=== PATIENT | female | born 1945 | race Caucasian/White ===

== ENCOUNTER 2019-05-20 02:38 | Emergency (ER) | payer MEDICARE, MEDICAID ==
[2019-05-20] MEDS ORDERED: NS 0.9% 1000 ML** 1,000 ML IV ONE (02:43)
[2019-05-20] MEDS ORDERED: Morphine 10 MG/ML VIAL (1 ml) IV ONE (02:49)
[2019-05-20] MEDS ORDERED: Ondansetron INJ* 2 MG/ML VIAL IV ONE (02:49)
[2019-05-20 03:06] LABS: ABS Basophils 0.1 10^3/ul (0-0.2); ABS Eosinophils 0.3 10^3/ul (0-0.6); ABS Lymphocytes 1.7 10^3/ul (1.0-4.8); ABS Monocytes 0.4 10^3/ul (0-0.8); ABS Neutrophils 5.7 10^3/ul (1.5-7.7); Eosinophil % 3.2 %; Hematocrit 41 % (35-47); Hemoglobin 13.6 g/dL (12.0-16.0); Lymphocyte % 20.9 %; Mean Corpuscular HGB Conc 34 g/dL (31-36); Mean Corpuscular Hemoglobin 29 pg (27-31); Mean Corpuscular Volume 88 fL (80-97); Mean Platelet Volume 7.6 fL (7.4-10.4); Platelet Count 319 10^3/uL (150-450); Red Blood Count 4.63 10^6 /uL (3.70-4.87); Red Cell Distribution Width 16 % (10-15); White Blood Count 8.1 10^3/uL (3.5-10.8)
--- NOTE | 2019-05-20 03:13 | ED ---
Abdominal Pain/Female - HPI Summary HPI Summary: This pt is a 74 Y/O F presenting to [facility] with a CC of lower abdominal pain that is rated a 4/10 in severity and is currently described as burning. She states that the pain started on 2200 05/19/2019. She states that she has had dysuria, nausea, diarrhea, and vomiting. She states that her pain is aggravated with palpation and ingesting liquids or food. She denies any diaphoresis, CP, and SOB. She states that her symptoms are alleviated by nothing. She has a PMHx of HTN and a total hysterectomy. - History of Current Complaint Chief Complaint: EDAbdPain Stated Complaint: ABD PAIN PER EMS Time Seen by Provider: 05/20/19 02:48 Hx Obtained From: Patient Onset/Duration: Sudden Onset Timing: Constant Severity Initially: Mild Severity Currently: Mild Pain Intensity: 4 Pain Scale Used: 0-10 Numeric Location: Diffuse Radiates: No Character: Burning Aggravating Factor(s): Food Alleviating Factor(s): Nothing Associated Signs and Symptoms: Positive: Negative - SOB, Urinary Symptoms - dysuria, Nausea, Vomiting, Diarrhea. Negative: Diaphoresis, Chest Pain Allergies/Adverse Reactions: Allergies Allergy/AdvReac Type Severity Reaction Status Date / Time No Known Allergies Allergy Verified 05/20/19 02:58 Home Medications: Home Medications Metoprolol Succinate XL TAB* [Toprol XL TAB*] 200 mg PO DAILY 05/20/19 [History Confirmed 05/20/19] Nortriptyline CAP* [Pamelor CAP*] 25 mg PO SEE INSTRUCTIONS PRN 05/20/19 [ History Confirmed 05/20/19] PMH/Surg Hx/FS Hx/Imm Hx Previously Healthy: Yes Endocrine/Hematology History: Denies: Hx Diabetes Cardiovascular History: Reports: Hx Hypertension Denies: Hx Pacemaker/ICD Respiratory History: Reports: Hx Chronic Obstructive Pulmonary Disease (COPD) History: Denies: Hx Dialysis, Hx Renal Disease Musculoskeletal History: Reports: Hx Arthritis, Hx Fibromyalgia Sensory History: Denies: Hx Hearing Aid Neurological History: Reports: Hx Migraine Psychiatric History: Reports: Hx Schizophrenia Denies: Hx Panic Disorder, Hx of Violent Episodes Against Others - Cancer History Hx Chemotherapy: No Hx Radiation Therapy: No - Surgical History Surgical History: Yes Surgery Procedure, Year, and Place: OVARIAN [place] 1999. OVARIAN [place] 2009 [place]. LIPOSUCTION ABD 1994 [place]. States hysterectomy - Immunization History Immunizations Up to Date: Yes Infectious Disease History: No Infectious Disease History: Denies: Traveled Outside the [place] in Last 30 Days - Family History Known Family History: Positive: Hypertension - Social History Occupation: Retired Lives: Alone Alcohol Use: None Hx Substance Use: No Substance Use Type: Reports: None Hx Tobacco Use: No Smoking Status (MU): Never Smoked Tobacco Review of Systems Negative: Skin Diaphoresis Negative: Chest Pain Negative: Shortness Of Breath Positive: Abdominal Pain, Vomiting, Diarrhea, Nausea Positive: dysuria All Other Systems Reviewed And Are Negative: Yes Physical Exam - Summary Physical Exam Summary: Appearance: Well-appearing, Well-nourished, appears somewhat uncomfortable Skin: Warm, dry, no obvious rash Eyes: sclera anicteric, no conjunctival pallor ENT: mucous membranes moist, pharynx appears normal Neck: Supple, nontender Respiratory: Clear to auscultation, no signs of respiratory distress Cardiovascular: Normal S1, S2. No murmurs. Normal distal pulses in tibial and radial bilaterally. Abdomen: Soft, diffuse tenderness with some guarding that does not localize anywhere, normal active bowel sounds present, somewhat distended Musculoskeletal: Normal, Strength/ROM Intact Neurological: A&Ox3, awake and alert, mentation is normal, speech is fluent and appropriate Psychiatric: affect is normal, does not appear anxious or depressed Triage Information Reviewed: Yes Vital Signs On Initial Exam: Initial Vitals Temp Pulse Resp BP Pulse Ox 97.6 F 62 20 162/78 98 05/20/19 02:45 05/20/19 02:45 05/20/19 02:45 05/20/19 02:45 05/20/19 02:45 Vital Signs Reviewed: Yes Procedures - Sedation Patient Received Moderate/Deep Sedation with Procedure: No Diagnostics - Vital Signs Vital Signs Temp Pulse Resp BP Pulse Ox 05/20/19 02:52 62 98 05/20/19 02:45 97.6 F 62 20 162/78 98 - Laboratory Lab Results: Lab Results 05/20/19 Range/Units 02:55 WBC 8.1 (3.5-10.8) 10^3/uL RBC 4.63 (3.70-4.87) 10^6 /uL Hgb 13.6 (12.0-16.0) g/dL Hct 41 (35-47) % MCV 88 (80-97) fL MCH 29 (27-31) pg MCHC 34 (31-36) g/dL RDW 16 H (10-15) % Plt Count 319 (150-450) 10^3/uL MPV 7.6 (7.4-10.4) fL Neut % (Auto) 70.1 % Lymph % (Auto) 20.9 % [place] % (Auto) 5.0 % Eos % (Auto) 3.2 % Baso % (Auto) 0.8 % Absolute Neuts (auto) 5.7 (1.5-7.7) 10^3/ul Absolute Lymphs (auto) 1.7 (1.0-4.8) 10^3/ul Absolute Monos (auto) 0.4 (0-0.8) 10^3/ul Absolute Eos (auto) 0.3 (0-0.6) 10^3/ul Absolute Basos (auto) 0.1 (0-0.2) 10^3/ul Absolute Nucleated RBC 0.0 10^3/ul Nucleated RBC % 0.0 Result Diagrams: 05/20/19 02:55 05/20/19 02:55 Lab Statement: Any lab studies that have been ordered have been reviewed, and results considered in the medical decision making process. - CT CT A/P CT Interpretation Completed By: Radiologist Summary of CT Findings: Moderate fecal load. Distal sigmoid colon demonstrates wall thickening with. mild pericolonic fat stranding to the level of the rectosigmoid junction. Colitis is considered. Multiple large coarse mesenteric calcifications in the pelvis and right upper. quadrant. ED physician has reviewed this report. Abdominal Pain Fem Course/Dx - Course Course Of Treatment: This pt is a 74 Y/O F presenting to [facility] with a CC of lower abdominal pain that is rated a 4/10 in severity and is currently described as burning. She states that the pain started on 2200 05/19/2019. She states that she has had dysuria, nausea, diarrhea, and vomiting. She states that her pain is aggravated with palpation and ingesting liquids or food. Her PE found that she has diffuse tenderness with some guarding that does not localize anywhere, normal active bowel sounds present, and is somewhat distended. She was given IV fluids, Morphine, and Zofran during her ED course. CT A/P shows the following: Moderate fecal load. Distal sigmoid colon demonstrates wall thickening with. mild pericolonic fat stranding to the level of the rectosigmoid junction. Colitis is considered. Multiple large coarse mesenteric calcifications in the pelvis and right upper. quadrant. She will be discharged home with a Dx of constipation. - Diagnoses Provider Diagnoses: Constipation Discharge ED - Sign-Out/Discharge Documenting (check all that apply): Patient Departure - discharge - Discharge Plan Condition: Good Disposition: HOME Patient Education Materials: Constipation (ED), Acute Abdominal Pain (ED) Referrals: Colton Romero CRUISE COORDINATOR [Primary Care Provider] - 2 Days (if not improved after the laxatives) - Billing Disposition and Condition Condition: GOOD Disposition: Home - Attestation Statements Document Initiated by Karla: Yes Documenting Shefaliibe: Davion Simpson Provider For Whom Karla is Documenting (Include Credential): Mic Alejo MD Scribe Attestation: Davion Painter, felixed for Mic Alejo MD on 05/21/19 at 0524. Scribe Documentation Reviewed: Yes Provider Attestation: The documentation as recorded by the Davion sanchez accurately reflects the service I personally performed and the decisions made by , Mic Alejo MD Status of Scribe Document: Viewed
[2019-05-20 03:23] LABS: Albumin 4.4 g/dL (3.2-5.2); Albumin/Globulin Ratio 1.7 (1-3); BUN/Creatinine Ratio 24.1 (8-20); Calcium 10.2 mg/dL (8.6-10.3); EGFR African American 85.6 (>60); EGFR Non-African American 70.8 (>60); Globulin 2.6 g/dL (2-4); Potassium 3.8 mmol/L (3.5-5.0); Total Bilirubin 0.3 mg/dL (0.2-1.0)
[2019-05-20] MEDS ORDERED: Iohexol 300* (CONTRAST) 10 ML SDV IV ONE (04:42)
[2019-05-20 06:20] LABS: Urine Appearance Cloudy; Urine Bilirubin Negative (Negative); Urine Blood Negative (Negative); Urine Color Yellow; Urine Glucose Negative (Negative); Urine Ketones Negative (Negative); Urine Nitrite Negative (Negative); Urine Protein Negative (Negative); Urine Specific Gravity 1.035 (1.010-1.030); Urine Urobilinogen Negative (Negative)
[2019-05-20] MEDS ORDERED: PEG 3000 GI LAVAGE* 1 GALLON PO ONE (06:34)
[2019-05-20 06:44] LABS: Urine Bacteria Absent (Absent); Urine Red Blood Cell 3+(>10/hpf) (Absent); Urine Squamous Epithelial Cell Present (Absent); Urine White Blood Cell Trace(0-5/hpf) (Absent)
[2019-05-20 07:27] VITALS: BP 132/110
== END 2019-05-20 07:39 | disposition home or self-care (01) ==
LOC: ED 02:38
DX: K59.00 Constipation, unspecified (principal); I10 Essential (primary) hypertension; J44.9 Chronic obstructive pulmonary disease, unspecified; F20.9 Schizophrenia, unspecified; Z90.710 Acquired absence of both cervix and uterus; Z79.899 Other long term (current) drug therapy
CPT/HCPCS: 36415; 74177; 80053; 81003; 81015; 83605; 83690; 85025; 87086; 96361; 96374; 96375; 99283; A9270-GY; J2270; J2405; Q9967

== ENCOUNTER 2019-06-13 02:14 | Emergency (ER) | payer MEDICARE, MEDICAID ==
[2019-06-13] MEDS ORDERED: NS 0.9% 1000 ML** 1,000 ML IV ONE (02:32)
[2019-06-13] MEDS ORDERED: Ondansetron INJ* 2 MG/ML VIAL IV ONE (02:32)
[2019-06-13 02:55] LABS: ABS Eosinophils 0.3 10^3/ul (0-0.6); ABS Lymphocytes 1.4 10^3/ul (1.0-4.8); ABS Monocytes 0.4 10^3/ul (0-0.8); ABS Neutrophils 8.5 10^3/ul (1.5-7.7); Eosinophil % 2.4 %; Hematocrit 39 % (35-47); Lymphocyte % 13.4 %; Mean Corpuscular HGB Conc 33 g/dL (31-36); Mean Corpuscular Hemoglobin 30 pg (27-31); Mean Corpuscular Volume 90 fL (80-97); Platelet Count 242 10^3/uL (150-450); Red Blood Count 4.33 10^6 /uL (3.70-4.87); Red Cell Distribution Width 16 % (10-15); White Blood Count 10.5 10^3/uL (3.5-10.8)
[2019-06-13 02:59] LABS: INR 1.02 (0.82-1.09)
[2019-06-13 03:11] LABS: Albumin 4.5 g/dL (3.2-5.2); Albumin/Globulin Ratio 1.8 (1-3); BUN/Creatinine Ratio 17.6 (8-20); C Reactive Protein 8.19 mg/L (<8.01); EGFR African American 78.7 (>60); Globulin 2.5 g/dL (2-4); Potassium 3.5 mmol/L (3.5-5.0); Total Bilirubin 0.2 mg/dL (0.2-1.0)
--- OUTSIDE RECORDS SUMMARY | 2019-06-13 03:33 | XMS REPORT | Continuity of Care Document ---
:1945 External Reference #:[id number] Author Name Alirio Butler MD Address [address] [place] [address] Problems Active Problems Provider Date Anxiety state Helena Marion M.D. Onset: 06/12/2011 Palpitations Helena Marion M.D. Onset: 06/12/2011 Headache Helena Marion M.D. Onset: 11/06/2012 Irritable bowel syndrome Helena Marion M.D. Onset: 11/06/2012 Allergic rhinitis Helena Marion M.D. Onset: 11/06/2012 Social History Type Date Description Comments Sex Unknown Tobacco Use Start: Unknown End: Former Cigarette Smoker 1PPD most of her Unknown life ETOH Use Denies alcohol use Recreational Drug Use Denies Drug Use Allergies, Adverse Reactions, Alerts Description No Known Drug Allergies Medications Active Medications SIG Qnty Indications Ordering Date Provider Cymbalta take 1 capsule by 30caps Alirio 06/03/[address] mouth daily for MD Carrie Part pain Voltaren 1 apply to 200gm M16.9 Alirio 06/03/2019 1% Gel affected area MD Carrie twice a day as needed Zofran 1 tab by mouth 30tabs G43.009 Alirio 06/03/2019 4mg Tablets three times a day MD Carrie Co Q-10 Maximum 1 tab by mouth 90caps Alirio 03/06/2019 Strength three times a day MD Carrie 400mg Capsules Nortriptyline HCL 1 tab by mouth 30caps Alirio 03/06/2019 25mg daily every night MD Carrie Capsules Metoprolol Succinate Take One Tablet 30tabs R00.2 Colton Love 07/21/2015 ER By Mouth Once Storm, [employer]ER-C 200mg Tablets ER 24HR Daily I10 Walker/Folding/Adjustable/Adult Use as 1units 780.71 Helena M. 2012 [facility] directed to Ankush Marion assist with ambulation Ibuprofen 800mg Unknown Tablets Papaya Unknown Chewtabs Tylenol 325mg Unknown Capsules Clindamycin Phosphate Unknown 1% Lotion Metronidazole Unknown 0.75% Cream Ice Blue 2% Gel Unknown Immunizations CPT Code Status Date Vaccine Lot # [id number] Given 01/02/2013 Influenza Vaccine High Dose PF [id number] Refused 09/18/2017 Influenza Virus Vaccine, Quadrivalent, 3 Yr > Quad , Preserv Free Vital Signs Date Vital Result Comment 06/03/2019 10:42am BP Systolic 130 mmHg BP Diastolic 72 mmHg Heart Rate 56 /min Body Temperature 97.9 F Respiratory Rate 16 /min 03/06/2019 11:15am Weight 165.00 lb Weight 74.844 kg BP Systolic 122 mmHg BP Diastolic 80 mmHg Heart Rate 74 /min Body Temperature 97.6 F Respiratory Rate 18 /min O2 % BldC Oximetry 93 % Results Test Acquired Date Facility Test Result H/L Range Note CBC Auto 05/20/2019 [facility] White Blood 8.1 10^3/ uL Normal 3.5-10.8 Diff [phone] Count Red Blood Count 4.63 10^6/uL Normal 3.70-4.87 Hemoglobin 13.6 g/dL Normal 12.0-16.0 Hematocrit 41 % Normal 35-47 Mean Corpuscular Volume 88 fL Normal 80-97 Mean Corpuscular Hemoglobin 29 pg Normal 27-31 Mean Corpuscular HGB Conc 34 g/dL Normal 31-36 Red Cell Distribution Width 16 % High 10-15 Platelet Count 319 10^3/uL Normal 150-450 Mean Platelet Volume 7.6 fL Normal 7.4-10.4 Abs Neutrophils 5.7 10^3/uL Normal 1.5-7.7 Abs Lymphocytes 1.7 10^3/uL Normal 1.0-4.8 Abs Monocytes 0.4 10^3/uL Normal 0-0.8 Abs Eosinophils 0.3 10^3/uL Normal 0-0.6 Abs Basophils 0.1 10^3/uL Normal 0-0.2 Abs Nucleated RBC 0.0 10^3/uL Granulocyte % 70.1 % Lymphocyte % 20.9 % Monocyte % 5.0 % Eosinophil % 3.2 % Basophil % 0.8 % Nucleated Red Blood Cells % 0.0 Laboratory test 05/20/2019 [facility] Lactic Acid 1.9 mmol/L Normal 0.5-2.0 1 finding [phone] Comp Metabolic 05/20/2019 [facility] Sodium 139 mmol/ L Normal 135-145 Panel [phone] Potassium 3.8 mmol/L Normal 3.5-5.0 Chloride 106 mmol/L Normal 101-111 Co2 Carbon Dioxide 24 mmol/L Normal 22-32 Anion Gap 9 mmol/L Normal 2-11 Glucose 114 mg/dL High 70-100 Blood Urea Nitrogen 19 mg/dL Normal 6-24 Creatinine 0.79 mg/dL Normal 0.51-0.95 BUN/Creatinine Ratio 24.1 High 8-20 Calcium 10.2 mg/dL Normal 8.6-10.3 Total Protein 7.0 g/dL Normal 6.4-8.9 Albumin 4.4 g/dL Normal 3.2-5.2 Globulin 2.6 g/dL Normal 2-4 Albumin/Globulin Ratio 1.7 Normal 1-3 Total Bilirubin 0.30 mg/dL Normal 0.2-1.0 Alkaline Phosphatase 93 U/L Normal 34-104 Alt 18 U/L Normal 7-52 Ast 20 U/L Normal 13-39 Egfr Non- 70.8 >60 Egfr 85.6 >60 2 Laboratory test 05/20/2019 [facility] Lipase 37 U/L Normal 11.0-82.0 finding [phone] Urinalysis 05/20/2019 [facility] Urine Color Yellow Profile [phone] Urine Appearance Cloudy Urine Specific [place] 1.035 High 1.010-1.030 Urine pH 5.0 Normal 5-9 Urine Urobilinogen Negative Negative Urine Ketones Negative Negative Urine Protein Negative Negative Urine Leukocytes Trace Abnormal Negative Urine Blood Negative Negative Urine Nitrite Negative Negative Urine Bilirubin Negative Negative Urine Glucose Negative Negative Urine White Blood Cell Trace(0-5/hpf) Absent Urine Red Blood Cell 3+(>10/hpf) Abnormal Absent Urine Bacteria Absent Absent Urine Squamous Epithelial Cell Present Abnormal Absent Urine Culture And 05/20/2019 [facility] Urine SEE RESULT 3 Sensitivities [phone] Culture BELOW Comp Metabolic 03/06/2019 [facility] Sodium 144 mmol/ L Normal 135-1 Panel [phone] Potassium 4.3 mmol/L Normal 3.5-5.0 Chloride 111 mmol/L Normal 101-111 Co2 Carbon Dioxide 24 mmol/L Normal 22-32 Anion Gap 9 mmol/L Normal 2-11 Glucose 111 mg/dL High 70-100 Blood Urea Nitrogen 18 mg/dL Normal 6-24 Creatinine 0.75 mg/dL Normal 0.51-0.95 BUN/Creatinine Ratio 24.0 High 8-20 Calcium 10.5 mg/dL High 8.6-10.3 Total Protein 7.0 g/dL Normal 6.4-8.9 Albumin 4.4 g/dL Normal 3.2-5.2 Globulin 2.6 g/dL Normal 2-4 Albumin/Globulin Ratio 1.7 Normal 1-3 Total Bilirubin 0.30 mg/dL Normal 0.2-1.0 Alkaline Phosphatase 84 U/L Normal 34-104 Alt 9 U/L Normal 7-52 Ast 13 U/L Normal 13-39 Egfr Non- 75.3 >60 Egfr 91.2 >60 4 CBC Auto 03/06/2019 [facility] White Blood 7.7 10^3/ uL Normal 3.5-10.8 Diff [phone] Count Red Blood Count 4.63 10^6/uL Normal 3.70-4.87 Hemoglobin 12.7 g/dL Normal 12.0-16.0 Hematocrit 40 % Normal 35-47 Mean Corpuscular Volume 86 fL Normal 80-97 Mean Corpuscular Hemoglobin 28 pg Normal 27-31 Mean Corpuscular HGB Conc 32 g/dL Normal 31-36 Red Cell Distribution Width 17 % High 10-15 Platelet Count 254 10^3/uL Normal 150-450 Mean Platelet Volume 8.4 fL Normal 7.4-10.4 Abs Neutrophils 5.5 10^3/uL Normal 1.5-7.7 Abs Lymphocytes 1.6 10^3/uL Normal 1.0-4.8 Abs Monocytes 0.3 10^3/uL Normal 0-0.8 Abs Eosinophils 0.2 10^3/uL Normal 0-0.6 Abs Basophils 0.0 10^3/uL Normal 0-0.2 Abs Nucleated RBC 0.0 10^3/uL Granulocyte % 72.0 % Lymphocyte % 20.9 % Monocyte % 4.5 % Eosinophil % 2.3 % Basophil % 0.3 % Nucleated Red Blood Cells % 0.1 Laboratory test 03/06/2019 [facility] Vitamin B12 269 pg/mL Normal 180-914 5 finding [phone] Folic Acid (Folate) 3.85 ng/mL >3.99 6 Connective Tissue 03/06/2019 [facility] Anti-Nuclear 0.9 U 7 Panel [phone] Antibody Cyclic Citrullinated Peptide <15.6 U 8 Interpretation See Comment 9 1 [facility] Severe Sepsis and Septic Shock Management Bundle Measure requires all lactic acids initially measuring >2.0 mmol/L be repeated. 2 Because ethnic data is not always readily available, this report includes an eGFR for both -Americans and non- Americans. The National Kidney Disease Education Program (NKDEP) does not endorse the use of the MDRD equation for patients that are not between the ages of 18 and 70, are , have extremes of body size, muscle mass, or nutritional status, or are non- or non-. According to the National Kidney Foundation, irrespective of diagnosis, the stage of the disease is based on the level of kidney function: Stage Description GFR(mL/min/1.73 m(2)) 1 Kidney damage with normal or decreased GFR 90 2 Kidney damage with mild decrease in GFR 60-89 3 Moderate decrease in GFR 30-59 4 Severe decrease in GFR 15-29 5 Kidney failure <15 (or dialysis) 3 SEE RESULT BELOW Name: SHANTE SEGOVIA : [address]: Mic Alejo MD Acct: [id number] Unit: [id number] AGE: 74 Location: Re05/20/19 SEX: F Status: DEP ER SPEC: [id number] LUIS: 05/20/[address] [facility] [address]: Mic Alejo MD REQ: [id number] RECD: 05/20/19 STATUS: COMP ROBERT DR: Colton Romero NP _ SOURCE: URINE SPDESC: ORDERED: Urine Culture Procedure Result Reported Site Urine Culture Final 05/21/19- 1206 ML No growth of clinically significant organisms * ML - Main Lab . END OF REPORT DEPARTMENT OF PATHOLOGY, [address] [place] [address] Reagan Mansfield M.D. Director [facility] # [id number] 4 Because ethnic data is not always readily available, this report includes an eGFR for both -Americans and non- Americans. The National Kidney Disease Education Program (NKDEP) does not endorse the use of the MDRD equation for patients that are not between the ages of 18 and 70, are , have extremes of body size, muscle mass, or nutritional status, or are non- or non-. According to the National Kidney Foundation, irrespective of diagnosis, the stage of the disease is based on the level of kidney function: Stage Description GFR(mL/min/1.73 m(2)) 1 Kidney damage with normal or decreased GFR 90 2 Kidney damage with mild decrease in GFR 60-89 3 Moderate decrease in GFR 30-59 4 Severe decrease in GFR 15-29 5 Kidney failure <15 (or dialysis) 5 Normal Range 180 to 914 Indeterminate Range 145 to 180 Deficient Range <145 6 [id number] REFERENCE VALUE <=1.0 (Negative) 8 REFERENCE VALUE <20.0 (Negative) 9 Tests for antibodies to dsDNA and JO ANN antigens are not performed automatically unless the WADE result is > or = 3.0 U. Studies performed at [facility] indicate that positive WADE results <3.0 U are rarely accompanied by positive second order tests. Test Performed by: [facility] - [address] [address] Machine Programmer: Jonah Eddy M.D. 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 She given at least several weeks, it seems like a good try.We will try Cymbalta next.She asks if there is any way that we could gether on oxycodone again. I told her this is not my usual form of treatment for fibromyalgia and I donot think it would benefit her in the long-term. At this point I have no intention of putting her on narcotics again.M16.9 Osteoarthritis of hip, unspecifiedNew Medication:Voltaren 1 % - 1 apply to affected area twice a day as neededComments:Trial of Voltaren for her right hip [id number] Migraine without aura, not intractable, without status migrainosusNew Medication:Zofran 4 mg - 1 tab by mouth three times a dayComments:She has trouble dealing with the symptoms of her migraines. They often cause nausea, trial of Zofran. Functional Status Description No Information Available Mental Status Description No Information Available Referrals Refer to Reason for Referral Status Appt Date Onelia De Santiago Referral to Dr. De Santiago for further evaluation as Closed several previous treatments have been ineffective. - - Pt states if you cannot reach her, please call daughter,Jj Yarbrough, - - Please contact Pt to schedule appt. - - Please fax appointment date/time to [facility], . [facility] Dermatology [facility] [place] [address] [place] [address] [phone]
[2019-06-13] MEDS ORDERED: Ibuprofen TAB* 400 MG PO ONE (04:25)
--- NOTE | 2019-06-13 05:19 | ED ---
GI/ HPI - HPI Summary HPI Summary: Patient is a 74 y/o F presenting to [facility] with complaints of abdominal pain and nausea. She states that the abdominal pain first onset 2300 06/12/19. The pain is characterized as a cramping sensation. She states that the pain is constant but waxes and wanes in intensity. Patient states that she had a similar episode of pain a few weeks ago. She was evaluated at [facility], CT abd/pel was done and it was noted that she was constipated. Last bowel movement was two days ago. She states that she took three capsules of "Smooth Move" laxative [employer]. Patient denies fevers. She also reports chronic FORTE and claims Hx of migraines. She states that that she had a brain MRI and states that they "found spots on it, on my brain". She also claims chronic, diffuse body aches and that her PCP is evaluating this Sx. NKDA reported. Patient is on nortriptyline. PMHx of HTN. PSHx of ovarin cyst removal. FMHx of cardiac disease. Home medications and allergies are reviewed. - History of Current Complaint Chief Complaint: EDAbdPain Time Seen by Provider: 06/13/19 02:19 Stated Complaint: ABD PAIN PER EMS Hx Obtained From: Patient Onset/Duration: Still Present Timing: Constant, Lasting Hours Severity: Moderate Current Severity: Moderate Pain Intensity: 4 Pain Characteristics: Cramping Associated Signs and Symptoms: Positive: Nausea. Negative: Fever - Allergy/Home Medications Allergies/Adverse Reactions: Allergies Allergy/AdvReac Type Severity Reaction Status Date / Time No Known Allergies Allergy Verified 06/13/19 02:32 Home Medications: Home Medications Metoprolol Succinate XL TAB* [Toprol XL TAB*] 200 mg PO DAILY 05/20/19 [History Confirmed 05/20/19] Nortriptyline CAP* [Pamelor CAP*] 25 mg PO SEE INSTRUCTIONS PRN 05/20/19 [ History Confirmed 05/20/19] PMH/Surg Hx/FS Hx/Imm Hx Endocrine/Hematology History: Denies: Hx Diabetes Cardiovascular History: Reports: Hx Hypertension Denies: Hx Pacemaker/ICD Respiratory History: Reports: Hx Chronic Obstructive Pulmonary Disease (COPD) History: Denies: Hx Dialysis, Hx Renal Disease Musculoskeletal History: Reports: Hx Arthritis, Hx Fibromyalgia Sensory History: Denies: Hx Hearing Aid Neurological History: Reports: Hx Migraine Psychiatric History: Reports: Hx Schizophrenia Denies: Hx Panic Disorder, Hx of Violent Episodes Against Others - Cancer History Hx Chemotherapy: No Hx Radiation Therapy: No - Surgical History Surgery Procedure, Year, and Place: OVARIAN [place] 1999. OVARIAN CYST 2010 [place]. LIPOSUCTION ABD 1995 [place]. States hysterectomy Infectious Disease History: No Infectious Disease History: Denies: Traveled Outside the [place] in Last 30 Days - Family History Known Family History: Positive: Hypertension - Social History Alcohol Use: None Hx Substance Use: No Substance Use Type: Reports: None Hx Tobacco Use: No Smoking Status (MU): Never Smoked Tobacco - Additional Comments History Additional Comments: PMHx of HTN, ovarian cysts, migraines PSHx of ovarian cysts FMHx of cardiac disease Review of Systems - ROS Summary Review of Systems Summary: Home Medications Medication Instructions Recorded Confirmed Type Metoprolol Succinate XL TAB* 200 mg PO DAILY 05/20/19 05/20/19 History [Toprol XL TAB*] Nortriptyline CAP* [Pamelor CAP*] 25 mg PO SEE INSTRUCTIONS PRN 05/20/19 History Negative: Fever Positive: Abdominal Pain, Nausea Positive: Myalgia - chronic diffuse body aches Positive: Headache - chronic All Other Systems Reviewed And Are Negative: Yes Physical Exam - Summary Physical Exam Summary: General: Well-developed, Obese and Elderly female. Moaning upon entry to room. HEENT: Normocephalic, Atraumatic. Eyes: Conjuctiva normal, PERRL. Oropharynx: Clear, mucous membranes moist, (-) exudates. Neck: Soft, FROM, (-) lymphadenopathy, (-) thyromegaly, (-) JVD. Cardiovascular: Normal sinus rhythm, (-) murmur. Lungs: Clear to auscultation bilaterally (-) wheezes, (-) rales, (-) rhonchi. Abdomen: Soft, Moderate tenderness throughout abdomen out of proportion to exam , non-distended, (-) organomegaly, normal bowel sounds. Back: (-) CVA tenderness Extremities: No edema. Skin: Warm, dry, (-) rash. Neuro: Alert and oriented x3, moves all extremities equally. No ataxia. No gait disturbance. No sensory deficit. Normal strength, normal sensation. Psychiatric: Mildly anxious appearing. Triage Information Reviewed: Yes Vital Signs On Initial Exam: Initial Vitals Pulse BP Pulse Ox 65 178/83 98 06/13/19 02:21 06/13/19 02:21 06/13/19 02:21 Vital Signs Reviewed: Yes Procedures - Sedation Patient Received Moderate/Deep Sedation with Procedure: No Diagnostics - Vital Signs Vital Signs Temp Pulse Resp BP Pulse Ox 06/13/19 03:21 75 172/97 91 06/13/19 03:00 68 94 06/13/19 02:51 65 155/90 95 06/13/19 02:25 97.2 F 64 20 178/83 96 06/13/19 02:21 65 178/83 98 - Laboratory Lab Results: Lab Results 06/13/19 06/13/19 06/13/19 Range/Units 02:45 02:45 02:45 WBC 10.5 (3.5-10.8) 10^3/uL RBC 4.33 (3.70-4.87) 10^6 /uL Hgb 13.0 (12.0-16.0) g/dL Hct 39 (35-47) % MCV 90 (80-97) fL MCH 30 (27-31) pg MCHC 33 (31-36) g/dL RDW 16 H (10-15) % Plt Count 242 (150-450) 10^3/uL MPV 8.0 (7.4-10.4) fL Neut % (Auto) 80.5 % Lymph % (Auto) 13.4 % Frontier % (Auto) 3.3 % Eos % (Auto) 2.4 % Baso % (Auto) 0.4 % Absolute Neuts (auto) 8.5 H (1.5-7.7) 10^3/ul Absolute Lymphs (auto) 1.4 (1.0-4.8) 10^3/ul Absolute Monos (auto) 0.4 (0-0.8) 10^3/ul Absolute Eos (auto) 0.3 (0-0.6) 10^3/ul Absolute Basos (auto) 0.0 (0-0.2) 10^3/ul Absolute Nucleated RBC 0.0 10^3/ul Nucleated RBC % 0.0 INR (Anticoag Therapy) 1.02 (0.82-1.09) Sodium 138 (135-145) mmol/L Potassium 3.5 (3.5-5.0) mmol/L Chloride 105 (101-111) mmol/L Carbon Dioxide 24 (22-32) mmol/L Anion Gap 9 (2-11) mmol/L BUN 15 (6-24) mg/dL Creatinine 0.85 (0.51-0.95) mg/dL Est GFR ( Amer) 78.7 (>60) Est GFR (Non-Af Amer) 65.0 (>60) BUN/Creatinine Ratio 17.6 (8-20) Glucose 121 H (70-100) mg/dL Lactic Acid (0.5-2.0) mmol/L Calcium 10.0 (8.6-10.3) mg/dL Total Bilirubin 0.20 (0.2-1.0) mg/dL AST 19 (13-39) U/L ALT 21 (7-52) U/L Alkaline Phosphatase 88 (34-104) U/L C-Reactive Protein 8.19 H (<8.01) mg/L Total Protein 7.0 (6.4-8.9) g/dL Albumin 4.5 (3.2-5.2) g/dL Globulin 2.5 (2-4) g/dL Albumin/Globulin Ratio 1.8 (1-3) Lipase 107 H (11.0-82.0) U/L 06/13/19 Range/Units 02:45 WBC (3.5-10.8) 10^3/uL RBC (3.70-4.87) 10^6 /uL Hgb (12.0-16.0) g/dL Hct (35-47) % MCV (80-97) fL MCH (27-31) pg MCHC (31-36) g/dL RDW (10-15) % Plt Count (150-450) 10^3/uL MPV (7.4-10.4) fL Neut % (Auto) % Lymph % (Auto) % Frontier % (Auto) % Eos % (Auto) % Baso % (Auto) % Absolute Neuts (auto) (1.5-7.7) 10^3/ul Absolute Lymphs (auto) (1.0-4.8) 10^3/ul Absolute Monos (auto) (0-0.8) 10^3/ul Absolute Eos (auto) (0-0.6) 10^3/ul Absolute Basos (auto) (0-0.2) 10^3/ul Absolute Nucleated RBC 10^3/ul Nucleated RBC % INR (Anticoag Therapy) (0.82-1.09) Sodium (135-145) mmol/L Potassium (3.5-5.0) mmol/L Chloride (101-111) mmol/L Carbon Dioxide (22-32) mmol/L Anion Gap (2-11) mmol/L BUN (6-24) mg/dL Creatinine (0.51-0.95) mg/dL Est GFR ( Amer) (>60) Est GFR (Non-Af Amer) (>60) BUN/Creatinine Ratio (8-20) Glucose (70-100) mg/dL Lactic Acid 1.9 (0.5-2.0) mmol/L Calcium (8.6-10.3) mg/dL Total Bilirubin (0.2-1.0) mg/dL AST (13-39) U/L ALT (7-52) U/L Alkaline Phosphatase (34-104) U/L C-Reactive Protein (<8.01) mg/L Total Protein (6.4-8.9) g/dL Albumin (3.2-5.2) g/dL Globulin (2-4) g/dL Albumin/Globulin Ratio (1-3) Lipase (11.0-82.0) U/L Result Diagrams: 06/13/19 02:45 06/13/19 02:45 Lab Statement: Any lab studies that have been ordered have been reviewed, and results considered in the medical decision making process. - Radiology ABDOMEN X-RAY Radiology Interpretation Completed By: ED Physician Summary of Radiographic Findings: NO ACUTE PROCESS, PENDING OFFICIAL REPORT. GIGU Course/Dx - Course Course Of Treatment: 74-year-old female presents from home by ambulance with severe abdominal cramping. Patient states she has been having belly pain for quite a while now. States she was actually here for this couple weeks ago. She states she has been constipated. Has been taking some crystals. Also took over the Counter smooth move. Took 3 of those this morning. States she has been having worsening abdominal cramping throughout the day. Comes and goes. All over her abdomen mostly on the left. according to her chart last time she was here she had a diarrhea picture consistent with possible colitis. patient states she had a very small bowel movement today. Had a bowel movement a couple days ago which she thinks may have been normal. Patient is a very poor historian. She requests pain medication immediately upon arrival. Patient is given ibuprofen for pain. Laboratories demonstrated no significant abnormality. Abdominal x-ray within normal limits. Prior to discharge patient had a very large watery bowel movement. Significant improvement in her symptoms. Discharged home. Follow-up with PCP. Follow sooner for any worsening symptoms. During ED course, patient received fluids, Zofran 4 mg IV, and ibuprofen 400 mg PO. - Diagnoses Provider Diagnoses: Abdominal pain Discharge ED - Sign-Out/Discharge Documenting (check all that apply): Patient Departure - discharge - Discharge Plan Condition: Stable Disposition: HOME Patient Education Materials: Abdominal Pain (ED) Referrals: Colton Romero, [employer] [Primary Care Provider] - 3 Days Additional Instructions: PLEASE RETURN TO ED FOR ANY NEW OR WORSENING SYMPTOMS. PLEASE FOLLOWUP WITH YOUR PRIMARY CARE PHYSICIAN WITHIN THREE DAYS. - Billing Disposition and Condition Condition: STABLE Disposition: Home - Attestation Statements Document Initiated by Karla: Yes Documenting Scribe: MARY SHIN Provider For Whom Karla is Documenting (Include Credential): IDALIA LIN MD Scribe Attestation: IMARY, scribed for IDALIA LIN MD on 06/13/19 at [id number]. Scribe Documentation Reviewed: Yes Provider Attestation: The documentation as recorded by the MARY sanchez accurately reflects the service I personally performed and the decisions made by me, IDALIA LIN MD Status of Scribe Document: Viewed
[2019-06-13 07:03] VITALS: BP 175/99
== END 2019-06-13 06:55 | disposition home or self-care (01) ==
LOC: ED 02:14
DX: R10.84 Generalized abdominal pain (principal); R11.0 Nausea; I10 Essential (primary) hypertension; Z79.899 Other long term (current) drug therapy; Z90.710 Acquired absence of both cervix and uterus
CPT/HCPCS: 36415; 74018; 80053; 83605; 83690; 85025; 85610; 86140; 96361; 96374; 99284; A9270-GY; J2405

== ENCOUNTER 2020-10-14 11:44 | Inpatient (IN) ==
[2020-10-14] MEDS ORDERED: fentaNYL 100 mcg/2 ml 50 MCG/ML VIAL ONE (12:54)
[2020-10-14] MEDS ORDERED: Midazolam 10 mg/10 ml VIAL 1 mg/ml 10 ml VIAL (10 mg) ONE (12:54)
[2020-10-14] MEDS: NS 0.9% 1000 ml BAG 1,000 ML IV SCH (17:42)
[2020-10-14] MEDS: Morphine 2 MG/ML SYRINGE IV PRN ×2 (17:42→23:01)
[2020-10-14] MEDS: Heparin 5000 UNITS/ML 1 mL VIAL SUBCUT SCH (22:48)
[2020-10-15] MEDS: Morphine 2 MG/ML SYRINGE IV PRN ×3 (04:38→15:40)
[2020-10-15 04:58] LABS: Hematocrit 32 % (35-47); Hemoglobin 10.4 g/dL (12.0-16.0); Mean Corpuscular HGB Conc 33 g/dL (31-36); Mean Corpuscular Hemoglobin 28 pg (27-31); Mean Corpuscular Volume 85 fL (80-97); Red Blood Count 3.74 10^6 /uL (3.70-4.87); Red Cell Distribution Width 15 % (10-15); White Blood Count 10.1 10^3/uL (3.5-10.8)
[2020-10-15 05:11] LABS: Calcium 8.5 mg/dL (8.6-10.3); EGFR African American 106.9 (>60); EGFR Non-African American 88.4 (>60); Potassium 2.8 mmol/L (3.5-5.0)
[2020-10-15] MEDS: Heparin 5000 UNITS/ML 1 mL VIAL SUBCUT SCH ×3 (06:19→22:20)
[2020-10-15 06:21] LABS: ABS Basophils 0.1 10^3/ul (0-0.2); ABS Eosinophils 0.2 10^3/ul (0-0.6); ABS Lymphocytes 1.8 10^3/ul (1.0-4.8); ABS Monocytes 0.5 10^3/ul (0-0.8); ABS Neutrophils 7.5 10^3/ul (1.5-7.7); Eosinophil % 1.6 %; Lymphocyte % 18.3 %; Nucleated Red Blood Cells % 0.1; Platelet Count Platelets clumped. 10^3/uL (150-450)
[2020-10-15] MEDS: CMCS: Meloxicam 7.5 mg TAB (NF) PO SCH (08:55)
[2020-10-15] MEDS: Scopolamine PATCH Remove NOTE PATCH OFF SCH (08:56)
[2020-10-15] MEDS: NS 0.9% 1000 ml BAG 1,000 ML IV SCH (08:57)
[2020-10-15] MEDS ORDERED: Potassium Chloride LIQUID 20 MEQ/15 ML LIQUID PO ONE (09:16)
[2020-10-15 09:40] LABS: Magnesium 1.8 mg/dL (1.9-2.7)
[2020-10-15] MEDS: KCL 20 MEQ/100 ML IVPREMIX 20 MEQ/100 ML BAG IV SCH ×2 (11:04→14:10)
[2020-10-15] MEDS ORDERED: Magnesium Sulfate 2 gm BAG 2 GM/50 ML BAG IVPB ONE (15:46)
[2020-10-16] MEDS: NS 0.9% 1000 ml BAG 1,000 ML IV SCH (02:57)
[2020-10-16 05:30] LABS: ABS Eosinophils 0.2 10^3/ul (0-0.6); ABS Lymphocytes 1.5 10^3/ul (1.0-4.8); ABS Monocytes 0.4 10^3/ul (0-0.8); ABS Neutrophils 3.7 10^3/ul (1.5-7.7); Eosinophil % 3.6 %; Hematocrit 28 % (35-47); Hemoglobin 9.1 g/dL (12.0-16.0); Lymphocyte % 25.2 %; Mean Corpuscular HGB Conc 33 g/dL (31-36); Mean Corpuscular Hemoglobin 28 pg (27-31); Mean Corpuscular Volume 85 fL (80-97); Platelet Count 259 10^3/uL (150-450); Red Cell Distribution Width 15 % (10-15); White Blood Count 5.8 10^3/uL (3.5-10.8)
[2020-10-16] MEDS: Heparin 5000 UNITS/ML 1 mL VIAL SUBCUT SCH ×3 (05:32→22:53)
[2020-10-16 05:47] LABS: Anion Gap 5 mmol/L (2-11); Blood Urea Nitrogen 11 mg/dL (6-24); CO2 Carbon Dioxide 23 mmol/L (22-32); Calcium 8.2 mg/dL (8.6-10.3); Chloride 110 mmol/L (101-111); Glucose 85 mg/dL (70-100); Potassium 3.6 mmol/L (3.5-5.0); Sodium 138 mmol/L (135-145)
[2020-10-16] MEDS ORDERED: Potassium Chloride LIQUID 20 MEQ/15 ML LIQUID PO ONE (09:35)
[2020-10-16 10:50] LABS: Total Iron Binding Capacity 253 mcg/dL (250-450); Transferrin 181 mg/dL (203-362)
[2020-10-16 11:01] LABS: % Iron Saturation 8 % (15-55); Iron < 20 ug/dL (50-212); Unsaturated Iron Binding < 238 ug/dL
[2020-10-16 11:15] LABS: Ferritin 76.1 ng/mL (11-307)
[2020-10-16 11:18] LABS: Vitamin B12 413 pg/mL (180-914)
[2020-10-16] MEDS: CMCS: Meloxicam 7.5 mg TAB (NF) PO SCH (11:19)
[2020-10-16] MEDS: Morphine 2 MG/ML SYRINGE IV PRN ×2 (11:21→19:40)
[2020-10-16] MEDS: Ondansetron 4 mg VIAL 2 MG/ML 2 ml VIAL IV PRN (19:40)
[2020-10-17 04:43] LABS: ABS Eosinophils 0.2 10^3/ul (0-0.6); ABS Lymphocytes 1.1 10^3/ul (1.0-4.8); ABS Monocytes 0.3 10^3/ul (0-0.8); Eosinophil % 4.6 %; Hematocrit 28 % (35-47); Hemoglobin 9.1 g/dL (12.0-16.0); Mean Corpuscular HGB Conc 33 g/dL (31-36); Mean Corpuscular Hemoglobin 28 pg (27-31); Mean Corpuscular Volume 84 fL (80-97); Mean Platelet Volume 7.8 fL (7.4-10.4); Platelet Count 260 10^3/uL (150-450); Red Blood Count 3.28 10^6 /uL (3.70-4.87); Red Cell Distribution Width 15 % (10-15); White Blood Count 4.6 10^3/uL (3.5-10.8)
[2020-10-17 05:00] LABS: Calcium 8.3 mg/dL (8.6-10.3); EGFR African American 117.3 (>60); EGFR Non-African American 96.9 (>60); Potassium 3.6 mmol/L (3.5-5.0)
[2020-10-17] MEDS: Morphine 2 MG/ML SYRINGE IV PRN ×2 (05:50→14:16)
[2020-10-17] MEDS: Ondansetron 4 mg VIAL 2 MG/ML 2 ml VIAL IV PRN ×2 (10:45→19:48)
[2020-10-17] MEDS: Heparin 5000 UNITS/ML 1 mL VIAL SUBCUT SCH ×2 (10:45→21:06)
[2020-10-17] MEDS ORDERED: Potassium Chloride LIQUID 20 MEQ/15 ML LIQUID PO ONE (16:46)
[2020-10-18] MEDS: Ondansetron 4 mg VIAL 2 MG/ML 2 ml VIAL IV PRN (09:30)
[2020-10-18] MEDS: Heparin 5000 UNITS/ML 1 mL VIAL SUBCUT SCH ×2 (09:37→22:44)
[2020-10-18] MEDS: Scopolamine PATCH Remove NOTE PATCH OFF SCH (10:20)
[2020-10-18] MEDS: Morphine 2 MG/ML SYRINGE IV PRN (11:16)
[2020-10-18] MEDS ORDERED: [UNRECOGNIZED DRUG - OTHER] TOPICAL PRN (11:25)
[2020-10-18] MEDS ORDERED: hydrALAZINE 20 mg/ml 1 ML Vial IV IV SLOW PU PRN (13:02)
[2020-10-18 13:19] LABS: ABS Eosinophils 0.1 10^3/ul (0-0.6); ABS Lymphocytes 1.3 10^3/ul (1.0-4.8); ABS Monocytes 0.3 10^3/ul (0-0.8); ABS Neutrophils 3.4 10^3/ul (1.5-7.7); Hematocrit 32 % (35-47); Hemoglobin 10.3 g/dL (12.0-16.0); Lymphocyte % 25.3 %; Mean Corpuscular HGB Conc 32 g/dL (31-36); Mean Corpuscular Hemoglobin 27 pg (27-31); Mean Corpuscular Volume 84 fL (80-97); Mean Platelet Volume 7.2 fL (7.4-10.4); Platelet Count 352 10^3/uL (150-450); Red Blood Count 3.77 10^6 /uL (3.70-4.87); Red Cell Distribution Width 15 % (10-15); White Blood Count 5.1 10^3/uL (3.5-10.8)
[2020-10-18 13:35] LABS: Calcium 9.2 mg/dL (8.6-10.3); EGFR African American 106.9 (>60); EGFR Non-African American 88.4 (>60); Magnesium 1.7 mg/dL (1.9-2.7); Potassium 3.8 mmol/L (3.5-5.0)
[2020-10-18] MEDS ORDERED: Magnesium Sulfate 2 gm BAG 2 GM/50 ML BAG IVPB ONE (15:19)
[2020-10-19 06:34] LABS: ABS Eosinophils 0.2 10^3/ul (0-0.6); ABS Lymphocytes 1.1 10^3/ul (1.0-4.8); ABS Monocytes 0.3 10^3/ul (0-0.8); Eosinophil % 4.7 %; Hematocrit 31 % (35-47); Lymphocyte % 31.1 %; Mean Corpuscular HGB Conc 32 g/dL (31-36); Mean Corpuscular Hemoglobin 27 pg (27-31); Mean Corpuscular Volume 85 fL (80-97); Mean Platelet Volume 7.6 fL (7.4-10.4); Nucleated Red Blood Cells % 0.1; Platelet Count 312 10^3/uL (150-450); Red Blood Count 3.67 10^6 /uL (3.70-4.87); Red Cell Distribution Width 15 % (10-15); White Blood Count 3.7 10^3/uL (3.5-10.8)
[2020-10-19 07:04] LABS: Calcium 8.8 mg/dL (8.6-10.3); EGFR African American 110.9 (>60); EGFR Non-African American 91.6 (>60); Potassium 3.3 mmol/L (3.5-5.0)
[2020-10-19] MEDS: Heparin 5000 UNITS/ML 1 mL VIAL SUBCUT SCH ×2 (09:49→22:21)
[2020-10-19] MEDS: KCL 20 MEQ/100 ML IVPREMIX 20 MEQ/100 ML BAG IV SCH ×2 (09:49→15:18)
[2020-10-19 11:27] LABS: Magnesium 1.8 mg/dL (1.9-2.7)
[2020-10-19] MEDS ORDERED: Magnesium Sulfate IV 1GM/100ML 1 GM/100 ML BAG IV ONE (18:00)
[2020-10-19] MEDS: Ondansetron 4 mg VIAL 2 MG/ML 2 ml VIAL IV PRN (19:44)
[2020-10-19] MEDS ORDERED: Metoclopramide 5 MG/ML VIAL (10 mg) IV SLOW PU PRN (22:35)
[2020-10-20 06:00] LABS: Calcium 8.9 mg/dL (8.6-10.3); EGFR African American 115.1 (>60); EGFR Non-African American 95.1 (>60); Magnesium 1.9 mg/dL (1.9-2.7); Potassium 3.7 mmol/L (3.5-5.0)
[2020-10-20] MEDS ORDERED: Lactated Ringers 1000 ml BAG 1,000 ML IV SCH ×2 (06:00→08:00)
[2020-10-20] MEDS ORDERED: Buffered Lidocaine 1% SYRIN 1 ml INTRADERM ONE ×4 (06:00→11:11)
[2020-10-20] MEDS: Lactated Ringers 1000 ml BAG 1,000 ML IV SCH (06:07)
[2020-10-20] MEDS: Ondansetron 4 mg VIAL 2 MG/ML 2 ml VIAL IV PRN (06:08)
[2020-10-20] MEDS ORDERED: Propofol 10 MG/ML 20 ML BTL ONE (13:04)
[2020-10-20] MEDS ORDERED: Lidocaine 2% PF 5 ML VIAL ONE (13:04)
[2020-10-20] MEDS ORDERED: fentaNYL 100 mcg/2 ml 50 MCG/ML VIAL ONE ×3 (13:04→18:22)
[2020-10-20] MEDS ORDERED: Rocuronium 50 mg VIAL 10 mg/ml 5 ml VIAL (50 mg) ONE ×2 (13:04→15:20)
[2020-10-20] MEDS ORDERED: Bupivacaine 0.25% EPI 200,000 30 ML SDV ONE (14:01)
[2020-10-20] MEDS ORDERED: Ketamine HCL 50 mg/ml 10 ml VIAL (500 MG) ONE (15:49)
[2020-10-20] MEDS ORDERED: Dexamethasone IV 4 MG/ML VIAL 1 ml VIAL ONE (16:28)
[2020-10-20] MEDS ORDERED: Acetaminophen IV 1 GM/100ML 100 ML IV ONE (16:46)
[2020-10-20] MEDS ORDERED: Succinylcholine 200 mg VIAL 20 mg/ml 10 ml VIAL (200 mg) ONE (16:46)
[2020-10-20] MEDS ORDERED: Ondansetron 4 mg VIAL 2 MG/ML 2 ml VIAL ONE ×3 (16:46→17:27)
[2020-10-20] MEDS ORDERED: Bupivacaine 0.5% SDV PF 30ML VIAL ONE (17:24)
[2020-10-20] MEDS ORDERED: diPHENhydraMINE IV 50 MG/ML 1 ml VIAL (BENADRYL) IV PRN (18:18)
[2020-10-20] MEDS ORDERED: Naloxone 0.4 mg VIAL 0.4 mg/ml 1 ml VIAL IV PRN (18:18)
[2020-10-20] MEDS ORDERED: DiMENhydriNATE IV 50 mg/ml 1 ml VIAL IV PUSH PRN (18:18)
[2020-10-20] MEDS: HYDROmorphone 1 MG/1 ML SYRINGE IV PRN ×3 (18:20→19:11)
[2020-10-20] MEDS ORDERED: HYDROmorphone 1 MG/1 ML SYRINGE ONE (18:20)
[2020-10-20] MEDS: fentaNYL 100 mcg/2 ml 50 MCG/ML VIAL IV PRN ×4 (18:22→19:21)
[2020-10-20] MEDS ORDERED: DiMENhydriNATE IV 50 mg/ml 1 ml VIAL ONE (18:27)
[2020-10-20] MEDS ORDERED: diPHENhydraMINE IV 50 MG/ML 1 ml VIAL (BENADRYL) ONE ×2 (18:27→19:20)
[2020-10-20] MEDS ORDERED: Naloxone 0.4 mg VIAL 0.4 mg/ml 1 ml VIAL IV PUSH PRN (18:35)
[2020-10-20] MEDS: HYDROmorphone PCA 20 MG/20 ML PCA.SYRING PCA SCH (19:00)
[2020-10-20] MEDS: Acetaminophen IV 1 GM/100ML 1,000 MG/100 ML BAG IV SCH (21:51)
[2020-10-21] MEDS: Lactated Ringers 1000 ml BAG 1,000 ML IV SCH ×2 (03:10→12:55)
[2020-10-21] MEDS: Acetaminophen IV 1 GM/100ML 1,000 MG/100 ML BAG IV SCH ×3 (05:53→22:08)
[2020-10-21 06:22] LABS: ABS Lymphocytes 0.8 10^3/ul (1.0-4.8); ABS Monocytes 0.4 10^3/ul (0-0.8); ABS Neutrophils 14.1 10^3/ul (1.5-7.7); Hematocrit 31 % (35-47); Hemoglobin 9.9 g/dL (12.0-16.0); Lymphocyte % 5.2 %; Mean Corpuscular HGB Conc 32 g/dL (31-36); Mean Corpuscular Hemoglobin 27 pg (27-31); Mean Corpuscular Volume 85 fL (80-97); Mean Platelet Volume 7.8 fL (7.4-10.4); Platelet Count 346 10^3/uL (150-450); Red Blood Count 3.64 10^6 /uL (3.70-4.87); Red Cell Distribution Width 15 % (10-15); White Blood Count 15.4 10^3/uL (3.5-10.8)
[2020-10-21 06:46] LABS: Albumin 3.2 g/dL (3.2-5.2); Albumin/Globulin Ratio 1.3 (1-3); Calcium 8.4 mg/dL (8.6-10.3); EGFR African American 110.9 (>60); EGFR Non-African American 91.6 (>60); Globulin 2.5 g/dL (2-4); Magnesium 1.4 mg/dL (1.9-2.7); Potassium 4.4 mmol/L (3.5-5.0); Total Bilirubin 0.3 mg/dL (0.2-1.0); Total Protein 5.7 g/dL (6.4-8.9)
[2020-10-21] MEDS: Scopolamine PATCH Remove NOTE PATCH OFF SCH (07:44)
[2020-10-21] MEDS ORDERED: Magnesium Sulfate IV 3 GM in NS 0.9% 100 ml BAG 100 ML IVPB ONE (08:30)
[2020-10-21] MEDS: Enoxaparin 30 MG/0.3 ML SYR SUBCUT SCH (11:08)
[2020-10-22] MEDS: Lactated Ringers 1000 ml BAG 1,000 ML IV SCH (04:47)
[2020-10-22] MEDS: Acetaminophen IV 1 GM/100ML 1,000 MG/100 ML BAG IV SCH ×3 (06:19→21:53)
[2020-10-22] MEDS: Enoxaparin 30 MG/0.3 ML SYR SUBCUT SCH (09:27)
[2020-10-22 09:46] LABS: ABS Basophils 0.1 10^3/ul (0-0.2); ABS Eosinophils 0.2 10^3/ul (0-0.6); ABS Lymphocytes 1.4 10^3/ul (1.0-4.8); ABS Monocytes 0.6 10^3/ul (0-0.8); ABS Neutrophils 5.9 10^3/ul (1.5-7.7); Eosinophil % 1.9 %; Hematocrit 26 % (35-47); Hemoglobin 8.5 g/dL (12.0-16.0); Mean Corpuscular HGB Conc 32 g/dL (31-36); Mean Corpuscular Hemoglobin 28 pg (27-31); Mean Corpuscular Volume 86 fL (80-97); Mean Platelet Volume 7.7 fL (7.4-10.4); Platelet Count 297 10^3/uL (150-450); Red Blood Count 3.07 10^6 /uL (3.70-4.87); Red Cell Distribution Width 16 % (10-15)
[2020-10-22 10:20] LABS: Calcium 8.3 mg/dL (8.6-10.3); EGFR African American 96.6 (>60); EGFR Non-African American 79.8 (>60); Magnesium 2.2 mg/dL (1.9-2.7); Potassium 4.2 mmol/L (3.5-5.0)
[2020-10-22 13:13] LABS: HE4 Ovarian Cancer Marker 206 pmol/L (<=140)
[2020-10-22 17:16] LABS: Cancer Ag (CA 125), S 77 U/mL (<46)
[2020-10-23] MEDS: Lactated Ringers 1000 ml BAG 1,000 ML IV SCH (00:24)
[2020-10-23] MEDS: HYDROmorphone PCA 20 MG/20 ML PCA.SYRING PCA SCH (03:36)
[2020-10-23 05:10] LABS: ABS Eosinophils 0.2 10^3/ul (0-0.6); ABS Lymphocytes 0.9 10^3/ul (1.0-4.8); ABS Monocytes 0.4 10^3/ul (0-0.8); ABS Neutrophils 4.5 10^3/ul (1.5-7.7); Eosinophil % 3.6 %; Hematocrit 24 % (35-47); Hemoglobin 7.6 g/dL (12.0-16.0); Mean Corpuscular HGB Conc 32 g/dL (31-36); Mean Corpuscular Hemoglobin 27 pg (27-31); Mean Corpuscular Volume 86 fL (80-97); Mean Platelet Volume 7.9 fL (7.4-10.4); Platelet Count 256 10^3/uL (150-450); Red Blood Count 2.79 10^6 /uL (3.70-4.87); Red Cell Distribution Width 15 % (10-15); White Blood Count 6.1 10^3/uL (3.5-10.8)
[2020-10-23 05:28] LABS: Albumin 2.8 g/dL (3.2-5.2); Albumin/Globulin Ratio 1.2 (1-3); Calcium 8.1 mg/dL (8.6-10.3); EGFR African American 115.1 (>60); EGFR Non-African American 95.1 (>60); Globulin 2.3 g/dL (2-4); Magnesium 1.9 mg/dL (1.9-2.7); Potassium 4.4 mmol/L (3.5-5.0); Total Bilirubin 0.2 mg/dL (0.2-1.0); Total Protein 5.1 g/dL (6.4-8.9)
[2020-10-23] MEDS: Acetaminophen IV 1 GM/100ML 1,000 MG/100 ML BAG IV SCH ×2 (05:52→13:08)
[2020-10-23] MEDS: Enoxaparin 30 MG/0.3 ML SYR SUBCUT SCH (09:29)
[2020-10-23] MEDS ORDERED: HYDROmorphone 0.5 MG/0.5 ML SYRINGE IV SLOW PU PRN (10:35)
[2020-10-23] MEDS ORDERED: HYDROmorphone 1 MG/1 ML SYRINGE IV SLOW PU PRN (10:36)
[2020-10-23] MEDS ORDERED: Iron Sucrose 20 MG/ML 5 ML VIAL IV PUSH SCH (11:00)
[2020-10-23] MEDS: Iron Sucrose 200 MG in NS 0.9% 100 ml IVPB SCH (12:17)
[2020-10-23] MEDS ORDERED: Iohexol 300 (CONTRAST) 10 ML SDV IV ONE (19:58)
[2020-10-24] MEDS: oxyCODONE/Acetamin 5/325 mg TAB PO PRN ×4 (01:52→18:11)
[2020-10-24 06:52] LABS: ABS Eosinophils 0.2 10^3/ul (0-0.6); ABS Lymphocytes 0.7 10^3/ul (1.0-4.8); ABS Monocytes 0.3 10^3/ul (0-0.8); ABS Neutrophils 3.5 10^3/ul (1.5-7.7); Eosinophil % 4.1 %; Hematocrit 25 % (35-47); Lymphocyte % 15.3 %; Mean Corpuscular HGB Conc 33 g/dL (31-36); Mean Corpuscular Hemoglobin 28 pg (27-31); Mean Corpuscular Volume 84 fL (80-97); Mean Platelet Volume 8.2 fL (7.4-10.4); Nucleated Red Blood Cells % 0.1; Platelet Count 262 10^3/uL (150-450); Red Cell Distribution Width 15 % (10-15); White Blood Count 4.7 10^3/uL (3.5-10.8)
[2020-10-24 07:04] LABS: Albumin 2.8 g/dL (3.2-5.2); Albumin/Globulin Ratio 1.2 (1-3); Calcium 8.4 mg/dL (8.6-10.3); EGFR African American 132.5 (>60); EGFR Non-African American 109.5 (>60); Globulin 2.3 g/dL (2-4); Potassium 4.2 mmol/L (3.5-5.0); Total Bilirubin 0.3 mg/dL (0.2-1.0); Total Protein 5.1 g/dL (6.4-8.9)
[2020-10-24] MEDS: Lactated Ringers 1000 ml BAG 1,000 ML IV SCH ×2 (08:16→21:40)
[2020-10-24] MEDS: Iron Sucrose 200 MG in NS 0.9% 100 ml IVPB SCH (08:16)
[2020-10-24] MEDS: Scopolamine PATCH Remove NOTE PATCH OFF SCH (09:25)
[2020-10-24] MEDS: Enoxaparin 30 MG/0.3 ML SYR SUBCUT SCH (09:25)
[2020-10-24] MEDS: Ondansetron 4 mg VIAL 2 MG/ML 2 ml VIAL IV PRN (13:10)
[2020-10-24] MEDS ORDERED: Metoclopramide 5 MG/ML VIAL (10 mg) IV SLOW PU ONE (14:33)
[2020-10-25] MEDS: oxyCODONE/Acetamin 5/325 mg TAB PO PRN ×3 (00:05→12:14)
[2020-10-25 06:02] LABS: ABS Eosinophils 0.3 10^3/ul (0-0.6); ABS Lymphocytes 1.1 10^3/ul (1.0-4.8); ABS Monocytes 0.5 10^3/ul (0-0.8); ABS Neutrophils 4.1 10^3/ul (1.5-7.7); Eosinophil % 4.8 %; Hematocrit 24 % (35-47); Hemoglobin 7.7 g/dL (12.0-16.0); Lymphocyte % 18.4 %; Mean Corpuscular HGB Conc 32 g/dL (31-36); Mean Corpuscular Hemoglobin 28 pg (27-31); Mean Corpuscular Volume 85 fL (80-97); Mean Platelet Volume 8.1 fL (7.4-10.4); Nucleated Red Blood Cells % 0.1; Platelet Count 284 10^3/uL (150-450); Red Blood Count 2.78 10^6 /uL (3.70-4.87); Red Cell Distribution Width 15 % (10-15)
[2020-10-25 06:15] LABS: Calcium 8.3 mg/dL (8.6-10.3); EGFR African American 148.2 (>60); EGFR Non-African American 122.5 (>60); Potassium 3.7 mmol/L (3.5-5.0)
[2020-10-25] MEDS: Enoxaparin 30 MG/0.3 ML SYR SUBCUT SCH (08:58)
[2020-10-25] MEDS: Iron Sucrose 200 MG in NS 0.9% 100 ml IVPB SCH (08:59)
[2020-10-25] MEDS: Ondansetron 4 mg VIAL 2 MG/ML 2 ml VIAL IV PRN (11:12)
[2020-10-25] MEDS: Lactated Ringers 1000 ml BAG 1,000 ML IV SCH (12:47)
[2020-10-25] MEDS: Nortriptyline 25 mg TAB PO PRN (14:01)
[2020-10-25] MEDS ORDERED: Nortriptyline 25 mg TAB PO PRN (19:57)
[2020-10-26] MEDS: oxyCODONE/Acetamin 5/325 mg TAB PO PRN ×3 (02:26→13:20)
[2020-10-26] MEDS: Lactated Ringers 1000 ml BAG 1,000 ML IV SCH (02:45)
[2020-10-26 04:45] LABS: ABS Eosinophils 0.4 10^3/ul (0-0.6); ABS Monocytes 0.5 10^3/ul (0-0.8); ABS Neutrophils 4.4 10^3/ul (1.5-7.7); Eosinophil % 5.6 %; Hematocrit 25 % (35-47); Hemoglobin 7.9 g/dL (12.0-16.0); Lymphocyte % 16.2 %; Mean Corpuscular HGB Conc 32 g/dL (31-36); Mean Corpuscular Hemoglobin 27 pg (27-31); Mean Corpuscular Volume 85 fL (80-97); Mean Platelet Volume 8.2 fL (7.4-10.4); Nucleated Red Blood Cells % 0.1; Platelet Count 295 10^3/uL (150-450); Red Blood Count 2.89 10^6 /uL (3.70-4.87); Red Cell Distribution Width 15 % (10-15); White Blood Count 6.3 10^3/uL (3.5-10.8)
[2020-10-26 04:58] LABS: Calcium 8.4 mg/dL (8.6-10.3); EGFR African American 135.3 (>60); EGFR Non-African American 111.9 (>60); Potassium 3.3 mmol/L (3.5-5.0)
[2020-10-26] MEDS ORDERED: Potassium Chloride LIQUID 20 MEQ/15 ML LIQUID PO ONE (07:25)
[2020-10-26 07:55] LABS: Magnesium 1.4 mg/dL (1.9-2.7)
[2020-10-26] MEDS: Iron Sucrose 200 MG in NS 0.9% 100 ml IVPB SCH (08:51)
[2020-10-26] MEDS: Enoxaparin 30 MG/0.3 ML SYR SUBCUT SCH (08:51)
[2020-10-26] MEDS: Magnesium Sulfate 2 gm BAG 2 GM/50 ML BAG IVPB SCH ×2 (11:49→21:46)
[2020-10-26] MEDS: Ondansetron 4 mg VIAL 2 MG/ML 2 ml VIAL IV PRN (15:53)
[2020-10-27] MEDS: Nortriptyline 25 mg TAB PO PRN (01:54)
[2020-10-27] MEDS: Ondansetron 4 mg VIAL 2 MG/ML 2 ml VIAL IV PRN ×2 (05:44→20:57)
[2020-10-27 05:55] LABS: ABS Eosinophils 0.4 10^3/ul (0-0.6); ABS Monocytes 0.5 10^3/ul (0-0.8); ABS Neutrophils 5.4 10^3/ul (1.5-7.7); Hematocrit 28 % (35-47); Hemoglobin 8.8 g/dL (12.0-16.0); Lymphocyte % 13.3 %; Mean Corpuscular HGB Conc 31 g/dL (31-36); Mean Corpuscular Hemoglobin 27 pg (27-31); Mean Corpuscular Volume 86 fL (80-97); Mean Platelet Volume 8.2 fL (7.4-10.4); Platelet Count 350 10^3/uL (150-450); Red Blood Count 3.26 10^6 /uL (3.70-4.87); Red Cell Distribution Width 16 % (10-15); White Blood Count 7.4 10^3/uL (3.5-10.8)
[2020-10-27 06:08] LABS: Calcium 8.4 mg/dL (8.6-10.3); Magnesium 2.4 mg/dL (1.9-2.7)
[2020-10-27] MEDS: oxyCODONE/Acetamin 5/325 mg TAB PO PRN ×3 (08:32→17:13)
[2020-10-27] MEDS: Scopolamine PATCH Remove NOTE PATCH OFF SCH (09:54)
[2020-10-27] MEDS: Enoxaparin 30 MG/0.3 ML SYR SUBCUT SCH (09:55)
[2020-10-27] MEDS: Iron Sucrose 200 MG in NS 0.9% 100 ml IVPB SCH (09:55)
[2020-10-28] MEDS: oxyCODONE/Acetamin 5/325 mg TAB PO PRN ×4 (03:46→20:24)
[2020-10-28 06:24] LABS: Hematocrit 26 % (35-47); Hemoglobin 8.6 g/dL (12.0-16.0); Mean Corpuscular HGB Conc 33 g/dL (31-36); Mean Corpuscular Hemoglobin 28 pg (27-31); Mean Corpuscular Volume 85 fL (80-97); Mean Platelet Volume 8.2 fL (7.4-10.4); Platelet Count 346 10^3/uL (150-450); Red Blood Count 3.06 10^6 /uL (3.70-4.87); Red Cell Distribution Width 16 % (10-15); White Blood Count 7.3 10^3/uL (3.5-10.8)
[2020-10-28 06:33] LABS: Calcium 8.4 mg/dL (8.6-10.3); EGFR African American 115.1 (>60); EGFR Non-African American 95.1 (>60); Potassium 3.8 mmol/L (3.5-5.0)
[2020-10-28] MEDS: Enoxaparin 30 MG/0.3 ML SYR SUBCUT SCH (08:33)
[2020-10-28] MEDS: CMC:Methylnaltrexone SQ (NF) 12 MG/0.6 ML VIAL SUBCUT PRN (13:33)
[2020-10-29] MEDS: oxyCODONE/Acetamin 5/325 mg TAB PO PRN ×3 (03:50→20:23)
[2020-10-29] MEDS: Enoxaparin 30 MG/0.3 ML SYR SUBCUT SCH (08:48)
[2020-10-29] MEDS: Ondansetron 4 mg VIAL 2 MG/ML 2 ml VIAL IV PRN (11:05)
[2020-10-30] MEDS: oxyCODONE/Acetamin 5/325 mg TAB PO PRN ×3 (07:43→17:06)
[2020-10-30] MEDS: Ondansetron ODT 4 mg TAB 4 MG TAB SL PRN ×2 (07:43→17:06)
[2020-10-30] MEDS: Scopolamine PATCH Remove NOTE PATCH OFF SCH (08:46)
[2020-10-30] MEDS: Enoxaparin 30 MG/0.3 ML SYR SUBCUT SCH (08:46)
[2020-10-30] MEDS: CMC:Methylnaltrexone SQ (NF) 12 MG/0.6 ML VIAL SUBCUT PRN (12:47)
[2020-10-31] MEDS: Enoxaparin 30 MG/0.3 ML SYR SUBCUT SCH (08:55)
[2020-10-31] MEDS: oxyCODONE/Acetamin 5/325 mg TAB PO PRN ×2 (08:56→17:24)
[2020-10-31 12:19] LABS: Hematocrit 28 % (35-47); Mean Corpuscular HGB Conc 33 g/dL (31-36); Mean Corpuscular Hemoglobin 28 pg (27-31); Mean Corpuscular Volume 87 fL (80-97); Mean Platelet Volume 7.5 fL (7.4-10.4); Platelet Count 420 10^3/uL (150-450); Red Blood Count 3.18 10^6 /uL (3.70-4.87); Red Cell Distribution Width 18 % (10-15); White Blood Count 6.7 10^3/uL (3.5-10.8)
[2020-10-31 12:22] LABS: ABS Eosinophils 0.4 10^3/ul (0-0.6); ABS Lymphocytes 1.2 10^3/ul (1.0-4.8); ABS Monocytes 0.4 10^3/ul (0-0.8); ABS Neutrophils 4.7 10^3/ul (1.5-7.7); Eosinophil % 5.3 %; Lymphocyte % 18.6 %
[2020-10-31 12:44] LABS: Calcium 8.6 mg/dL (8.6-10.3); EGFR African American 98.2 (>60); EGFR Non-African American 81.1 (>60); Magnesium 1.8 mg/dL (1.9-2.7); Phosphorus 1.9 mg/dL (2.5-5.0)
[2020-10-31] MEDS ORDERED: Potassium Phosphate IV 15 MMOLE in NS 0.9% 250 ml 250 ML IVPB ONE (13:06)
[2020-10-31] MEDS ORDERED: Magnesium Sulfate IV 1GM/100ML 1 GM/100 ML BAG IV ONE (13:06)
[2020-11-01] MEDS: Enoxaparin 30 MG/0.3 ML SYR SUBCUT SCH (08:52)
[2020-11-01] MEDS ORDERED: MELOXICAM 7.5 MG PO SCH (09:00)
[2020-11-01] MEDS: oxyCODONE/Acetamin 5/325 mg TAB PO PRN ×2 (11:33→17:58)
[2020-11-01 15:29] VITALS: BP 147/74
== END 2020-11-01 18:30 | disposition home or self-care (01) | DRG 330 ==
LOC: ENDO 11:44 → SSU 16:17
PROVIDERS: ADMIT Hospitalist; ATTEND Surgery

== ENCOUNTER 2023-08-22 17:39 | Inpatient (IN) ==
[2023-08-22] MEDS: Lactated Ringers 1000 ml BAG 1,000 ML IV ONE (18:30)
[2023-08-22 18:43] LABS: ABS Basophils 0.1 10^3/uL (0.0-0.1); ABS Eosinophils 0.3 10^3/uL (0.0-0.5); ABS Lymphocytes 1.8 10^3/uL (1.0-4.8); ABS Monocytes 0.4 10^3/uL (0.0-0.9); ABS Neutrophils 2.5 10^3/uL (1.5-7.6); ABS Nucleated RBC 0.01 10^3/ul; Eosinophil % 5.3 %; Hematocrit 39.2 % (35-45); Hemoglobin 12.9 g/dL (11.5-14.3); Lymphocyte % 35.8 %; Mean Corpuscular Hemoglobin 29.1 pg (27-33); Mean Corpuscular Volume 88.1 fL (80-97); Mean Platelet Volume 7.4 fL (7.5-11.2); Nucleated Red Blood Cells % 0.1 %/100WBC (0.0-0.8); Platelet Count 232 10^3/uL (150-450); Red Blood Count 4.45 10^6/uL (3.63-4.92); Red Cell Distribution Width 15.3 % (12-17)
[2023-08-22 19:06] LABS: High Sens Troponin Baseline 9 pg/mL (<15)
[2023-08-22 20:12] LABS: ALT 14 U/L (7-52); Albumin 4.1 g/dL (3.2-5.2); Albumin/Globulin Ratio 1.6 (1-3); Alkaline Phosphatase 102 U/L (35-149); Anion Gap 11 mmol/L (2-16); Blood Urea Nitrogen 45 mg/dL (6-24); C Reactive Protein 3.55 mg/L (<8.01); CO2 Carbon Dioxide 27 mmol/L (22-32); Calcium 9.2 mg/dL (8.6-10.3); Chloride 97 mmol/L (101-111); Creatinine, Serum 2.81 mg/dL (0.51-0.95); Globulin 2.6 g/dL (2-4); Glucose 87 mg/dL (70-100); Sodium 135 mmol/L (135-145); Total Bilirubin 0.3 mg/dL (0.2-1.0); Total Protein 6.7 g/dL (6.4-8.9); eGFR CKD-EPI 16.5 (>60)
[2023-08-22 20:20] LABS: High Sensitivity Troponin 1 Hr 11 pg/mL (<15)
[2023-08-22 20:50] LABS: Urine Appearance Clear; Urine Bilirubin Negative (Negative); Urine Blood Negative (Negative); Urine Color Yellow; Urine Glucose Negative (Negative); Urine Ketones Negative (Negative); Urine Nitrite Negative (Negative); Urine Protein 1+ (>=30 mg/dL) (Negative); Urine Urobilinogen Negative (Negative); Urine pH 5.5 (5.0-8.0)
[2023-08-22 20:54] LABS: Urine Bacteria 1+ /HPF (Absent); Urine Red Blood Cell Trace(0-2/hpf) /HPF (0-Trace); Urine White Blood Cell Trace(0-5/hpf) /HPF (0-Trace)
[2023-08-22 22:27] LABS: Urine Benzodiazepine Screen None Detected (None Detect); Urine Cannabinoids Screen None Detected (None Detect); Urine Opiates Screen Presumptive Positive (None Detect)
[2023-08-22 22:35] LABS: Magnesium 2.2 mg/dL (1.9-2.7); Potassium Redraw 3.9 mmol/L (3.5-5.0)
[2023-08-23] MEDS: Lactated Ringers 1000 ml BAG 1,000 ML IV SCH (01:40)
[2023-08-23] MEDS ORDERED: Haloperidol 5 mg/ml SDV IV/IM 5 MG/ML AMP IV SLOW PU PRN (01:59)
[2023-08-23 04:44] LABS: ABS Eosinophils 0.2 10^3/uL (0.0-0.5); ABS Lymphocytes 1.4 10^3/uL (1.0-4.8); ABS Monocytes 0.4 10^3/uL (0.0-0.9); ABS Neutrophils 3.2 10^3/uL (1.5-7.6); Eosinophil % 4.4 %; Hematocrit 35.3 % (35-45); Lymphocyte % 26.3 %; Mean Corpuscular Hemoglobin 29.8 pg (27-33); Mean Corpuscular Hgb Conc 34.1 g/dL (31-36); Mean Corpuscular Volume 87.5 fL (80-97); Mean Platelet Volume 7.3 fL (7.5-11.2); Nucleated Red Blood Cells % 0.1 %/100WBC (0.0-0.8); Platelet Count 186 10^3/uL (150-450); Red Blood Count 4.03 10^6/uL (3.63-4.92); Red Cell Distribution Width 15.2 % (12-17); White Blood Count 5.2 10^3/uL (3.8-11.8)
[2023-08-23 05:01] LABS: TSH Ultra Thyroid Stim Horm 1.16 mcIU/mL (0.34-5.60)
[2023-08-23 05:13] LABS: Folate 4.14 ng/mL (5.90-24.80)
[2023-08-23 05:15] LABS: Calcium 9.2 mg/dL (8.6-10.3); Creatinine, Serum 1.88 mg/dL (0.51-0.95); Magnesium 2.1 mg/dL (1.9-2.7); Potassium 4.5 mmol/L (3.5-5.0); eGFR CKD-EPI 26.7 (>60)
[2023-08-23] MEDS ORDERED: Enoxaparin 40 MG/0.4 ML SYR SUBCUT SCH (06:00)
[2023-08-23] MEDS: Enoxaparin 30 MG/0.3 ML SYR SUBCUT SCH (06:53)
[2023-08-23] MEDS: Ondansetron ODT 4 mg TAB 4 MG TAB PO PRN (13:07)
[2023-08-24 06:17] LABS: ABS Eosinophils 0.2 10^3/uL (0.0-0.5); ABS Lymphocytes 1.2 10^3/uL (1.0-4.8); ABS Monocytes 0.3 10^3/uL (0.0-0.9); ABS Neutrophils 2.5 10^3/uL (1.5-7.6); Eosinophil % 4.7 %; Hematocrit 36.4 % (35-45); Hemoglobin 11.9 g/dL (11.5-14.3); Lymphocyte % 27.7 %; Mean Corpuscular Hemoglobin 28.9 pg (27-33); Mean Corpuscular Hgb Conc 32.6 g/dL (31-36); Mean Corpuscular Volume 88.6 fL (80-97); Mean Platelet Volume 7.6 fL (7.5-11.2); Nucleated Red Blood Cells % 0.1 %/100WBC (0.0-0.8); Platelet Count 180 10^3/uL (150-450); Red Cell Distribution Width 15.2 % (12-17); White Blood Count 4.2 10^3/uL (3.8-11.8)
[2023-08-24 06:35] LABS: Calcium 9.4 mg/dL (8.6-10.3); Creatinine, Serum 1.04 mg/dL (0.51-0.95); Magnesium 1.8 mg/dL (1.9-2.7); eGFR CKD-EPI 54.3 (>60)
[2023-08-24 17:47] VITALS: BP 144/87
== END 2023-08-24 18:15 | disposition home or self-care (01) | DRG 92 ==
LOC: EDHOLD 17:39 → ED 17:39 → SUATTDRO 22:51 → OBSVTOIN 22:51 → MED 08-23 11:04
PROVIDERS: ADMIT Student in an Organized Health Care Education/Training Program; ATTEND Internal Medicine